=== PATIENT | male | born 1945 | race Caucasian/White ===

== ENCOUNTER 2018-05-19 06:05 | Day surgery (SDC) | payer MEDICARE, BC ==
[2018-04-28 12:09] LABS: HEMATOCRIT 45.2 % (37.9-51.0); HEMOGLOBIN 15.6 g/dL (13.5-17.0); MEAN CORPUSCULAR HGB CONC 34.5 g/dL (32.0-36.0); MEAN CORPUSCULAR VOLUME 90 fl (80-97); PLATELET COUNT 249 10^3/uL (150-450); RED BLOOD COUNT 5.02 10^6/uL (4.35-5.55); RED CELL DISTRIBUTION WIDTH 13.9 % (11.5-14.0); WHITE BLOOD COUNT 7.6 10^3/uL (4.0-10.5)
[2018-04-28 12:13] LABS: INTERNATIONAL RATION (INR) 0.91; PROTHROMBIN TIME 12.7 SEC (11.4-15.4)
--- NOTE | 2018-04-28 13:38 | EKG REPORT ---
SEVERITY:- NORMAL ECG - SINUS RHYTHM : Confirmed by: Dale Gottlieb MD 28-Apr-2018 13:37:42
[~2018-05-19 06:05] MED LIST: CEFAZOLIN 1 GM/D5W RTU 1 GM/50 ML RTUPB IV PRN; LACTATED RINGERS 1000 ML IV PRN; LIDOCAINE 0.5% INJ-PF (5 MG/ML) 50 ML SDV SUBCUT PRN; LIDOCAINE 1%/EPINEPHRINE INJ 20 ML VIAL ONE; SODIUM BICARBONATE 8.4% INJ 50 MEQ/50 ML DISP.SYRIN ONE
[2018-05-19] MEDS ORDERED: MIDAZOLAM 2 MG/2 ML INJ ONE (06:54)
[2018-05-19] MEDS ORDERED: FENTANYL CITRATE INJ/PF 100 MCG/2 ML AMPUL ONE (06:54)
[2018-05-19] MEDS ORDERED: PROPOFOL INJ 200 MG/20 ML VIAL IV ONE (06:55)
[2018-05-19] MEDS ORDERED: KETAMINE HCL INJ 500 MG/10 ML VIAL ONE (08:11)
[2018-05-19] MEDS ORDERED: PROMETHAZINE HCL INJ 25 MG/1 ML VIAL IV PRN (08:44)
[2018-05-19] MEDS ORDERED: FENTANYL CITRATE INJ/PF 100 MCG/2 ML AMPUL IV PRN ×3 (08:44)
[2018-05-19] MEDS ORDERED: DIPHENHYDRAMINE HCL 50 MG/ML VIAL IV PRN (08:44)
--- NOTE | 2018-05-19 09:31 | Operative Report ---
Operative Report DATE OF SURGERY: 05/19/18 PREOPERATIVE DIAGNOSIS: Mass of the left medial scapula POSTOPERATIVE DIAGNOSIS: Same OPERATION: Excision of mass of left medial scapula with multi layer closure SURGEON: BRII CONCEPCION ANESTHESIA: LMAC TISSUE REMOVED OR ALTERED: Lipoma COMPLICATIONS: None ESTIMATED BLOOD LOSS: Minimal PROCEDURE: The patient was brought into the operating room after being marked. The patient was placed in a sloppy lateral position. The patient was then prepped with a Betadine scrub and Betadine solution. A timeout was performed. The area for resection was outlined. Injection of 1% lidocaine with epinephrine and bicarbonate was performed for its anesthetic and hemostatic effects. An incision was then made through the skin into the subcutaneous tissue. Dissection was performed [id number] to encounter the mass. Once the mass was encountered a dissection was performed 360 in order to remove the mass Retraction was used to facilitate exposure. Dissection was performed through the superficial fascia and then down into the deep fat. The dissection was performed in the deep subcutaneous plane. [id number] the mass was dissected free of the surrounding tissue. Throughout the case hemostasis was achieved with the bipolar and the Bovie. Once the mass was completely dissected it was then removed. The area was washed with Betadine and sterile water solution. Hemostasis was confirmed. Closure was then performed using 3-0 Vicryl sutures. Because of the size of the mass deeper sutures were placed in order to minimize a deformity. The layers that were dissected were closed [id number] until we reached the deep dermis. 3-0 Vicryl was used for deep dermal sutures. A subcuticular stitch was placed using 3-0 PDS. A central support stitch was placed using 3-0 PDS. The wound was cleaned with Betadine prior to the final closure. Tincture of benzoin and Steri-Strips with a light pressure dressing was applied. Patient was then reversed from anesthesia and taken to the [facility] for recovery. The approximate size of the mass was 3.2 cm. This dictation was performed with [place] naturally speaking. If there are any inconsistencies or errors please contact the physician. Subjective: No complaints Objective: Vital signs stable afebrile No bleeding Dressing intact Assessment and plan: Doing well. Elevate the operative site. Resume medications. Take antibiotics for 1 day Follow-up Full instructions were given to the patient and family and they understand Portions of this note may be dictated using [employer] voice recognition software. Occasional variations and spelling and vocabulary could be possible and are unintentional. Additionally, there is a chance that some errors may not be caught or corrected. Please notify the offer of any discrepancies noted or if any statements are unclear.
--- NOTE | 2018-05-19 09:34 | Discharge Summary ---
Discharge Summary (SDC) - Discharge Final Diagnosis: Mass of the left medial scapula Date of Surgery: 05/19/18 Condition: Good Treatment or Instructions: Leave the top dressing on for 2 days, then removed. Leave the Dermabond glue on for 10 days days, then removal. Then cleaning wound with peroxide and apply/bacitracin 3 times per day. Antibiotics for 1 day, then discontinue. Elevate operative area to decrease swelling. Do not strain, or lift heavy objects. Call for excessive bleeding, increased temperature of 101, uncontrolled pain, or excessive nausea or vomiting. You may reach Dr. Wilder through his office at [phone]. In the event of an emergency after hours, then contact Dr. Wilder through [facility]. Return to the office for a postop check on . The time will be scheduled by the nursing staff of [facility] prior to discharge. Please give the patient a copy of their labs and EKG so they can bring this to their PMD. Thank you Portions of this note may be dictated using [employer] voice recognition software. Occasional variations and spelling and vocabulary could be possible and are unintentional. Additionally, there is a chance that some errors may not be caught or corrected. Please notify the offer of any discrepancies noted or if any statements are unclear. Referrals: ELDA SWANN MD [Primary Care Provider] - Discharge Activity: Activity As Tolerated Report the Following to Your Physician Immediately: Unusual Bleeding - Do not stretch or bend back. No reaching. Take the top dressing off in 2 days. The wound is glued with Dermabond. When the Dermabond start in about 7- 10 days he may start peeling it off. Use bacitracin to help remove the rest of the Dermabond. Follow-up in the office next week.
[2018-05-19 11:54] VITALS: BP 140/70
== END 2018-05-19 10:55 | disposition home or self-care (01) ==
LOC: OROUT 06:05
PROVIDERS: ATTEND Plastic Surgery
DX: D17.1 Benign lipomatous neoplasm of skin and subcutaneous tissue of trunk (principal); Z79.01 Long term (current) use of anticoagulants; Z85.46 Personal history of malignant neoplasm of prostate
CPT/HCPCS: 93005; 36415; 85027; 85610; 85730; 88304 ×2; 93010; 21931; J2250; J0690; J3010; J3490 ×2; J2704; 300

== ENCOUNTER 2019-10-23 03:59 | Emergency (ER) | payer MEDICARE, BC ==
[2019-10-23] MEDS ORDERED: MORPHINE SULFATE 10 MG/ML INJ IV ONE (04:57)
[2019-10-23] MEDS ORDERED: ONDANSETRON HCL INJ/PF 4 MG/2 ML SDV IV ONE (04:57)
--- NOTE | 2019-10-23 04:58 | ER Document Report ---
ED Neck/Back Problem - General Chief Complaint: Low Back Pain Stated Complaint: LOWER BACK PAIN Time Seen by Provider: 10/23/19 04:45 Primary Care Provider: ELDA SWANN MD [Primary Care Provider] - Follow up as needed Notes: Patient is a 74-year-old male that comes emergency department for chief complaint of lower back pain. He states the pain feels like it is in the middle of his lower back, radiates out to both sides, pain does not go down his legs. He denies numbness, incontinence, fever, nausea/vomiting, abdominal pain. He states he started feeling some tightness and soreness 3 to 4 days ago, pain is been much worse over the past 2 days, he states he barely was able to get out of bed to come to the emergency department this morning. Patient does have a history of prostate cancer, treated and in remission, however he states he had a recent screening PSA and this was very elevated again. He states he takes a stool softener and has a history of constipation but he denies any medical histo ry otherwise, he denies any other medications. TRAVEL OUTSIDE OF THE [place] IN LAST 30 DAYS: No - Related Data Allergies/Adverse Reactions: opiates Adverse Reaction (Mild, Uncoded 10/23/19 04:08) Constipation Home Medications: constipation medicines Past Medical History - General Information source: Patient - Social History Smoking Status: Never Smoker Frequency of alcohol use: None Drug Abuse: None Lives with: Family Family History: Reviewed & Not Pertinent Patient has suicidal ideation: No Patient has homicidal ideation: No - Past Medical History Cardiac Medical History: Denies: Hx Coronary Artery Disease, Hx Heart Attack, Hx Hypertension Pulmonary Medical History: Denies: Hx Asthma, Hx Bronchitis, Hx COPD, Hx Pneumonia Neurological Medical History: Denies: Hx Cerebrovascular Accident, Hx Seizures Malignancy Medical History: Reports Hx Prostate Cancer Musculoskeletal Medical History: Denies Hx Arthritis Past Surgical History: Denies: Hx Pacemaker - Immunizations Hx Diphtheria, Pertussis, Tetanus Vaccination: Yes Review of Systems - Review of Systems Constitutional: No symptoms reported EENT: No symptoms reported Cardiovascular: No symptoms reported Respiratory: No symptoms reported Gastrointestinal: No symptoms reported Genitourinary: No symptoms reported Male Genitourinary: No symptoms reported Musculoskeletal: See HPI Skin: No symptoms reported Hematologic/Lymphatic: No symptoms reported Neurological/Psychological: No symptoms reported Physical Exam - Vital signs Vitals: Temp Pulse Resp BP Pulse Ox 97.4 F 84 16 124/76 94 10/23/19 04:06 10/23/19 04:06 10/23/19 04:06 10/23/19 04:06 10/23/19 04:06 - Notes Notes: GENERAL: Alert, interacts well. No acute distress. Patient moves with discomfort but does not appear to be in distress. HEAD: Normocephalic, atraumatic. EYES: Pupils equal, round, and reactive to light. Extraocular movements intact. ENT: Oral mucosa moist, tongue midline. Oropharynx unremarkable. Airway patent. LUNGS: Clear to auscultation bilaterally, no wheezes, rales, or rhonchi. No respiratory distress. HEART: Regular rate and rhythm. No murmur ABDOMEN: Soft, non-tender. Non-distended. Bowel sounds present in all 4 quadrants. GENITOURINARY: Deferred EXTREMITIES: Moves all 4 extremities spontaneously. No edema, normal radial and dorsalis pedis pulses bilaterally. No cyanosis. BACK: There is tenderness along the lower lumbar spine in the midline and on the bilateral paraspinal muscles. This is specific. Borderline straight leg raises bilaterally but not significantly. No saddle anesthesia, no signs of trauma. Normal upper and lower extremity range of motion, normal strength, normal distal neurovascular exam. NEUROLOGICAL: Alert and oriented x3. Normal speech. Cranial nerves II through XII grossly intact. PSYCH: Normal affect, normal mood. SKIN: Warm, dry, normal turgor. No rashes or lesions noted. Course - Re-evaluation Re-evalutation: Patient moves with discomfort, has palpable tenderness of the lumbar spine and bilateral paraspinal muscles. No neurovascular deficits. Unremarkable vital signs. CBC, chemistry unremarkable. Urinalysis shows elevated specific gravity but is otherwise unremarkable. Given IV fluids. CT was performed because of patient's history of prostate cancer and him telling me that his most recent PSA was elevated. In addition to this patient had point tenderness over the lumbar spine. This shows incidental finding of possible chronic aortic dissection in the infrarenal aorta, shows small herniated disc at L5 and S1, nonspecific otherwise. No acute findings reported. Discussed with patient at length. Provided him with a copy of his report, he has follow-up in 2 days and then again in 5 days. He will be treated with steroids, provided with pain medication, discussed recommendations, follow-up, return precautions. I discussed with Dr. Dsouza the details including CAT scan details, she evaluated the patient at bedside, she states patient can be discharged with follow-up instructions and return precautions. Patient states understanding and agreement. - Vital Signs Vital signs: Temp Pulse Resp BP Pulse Ox 97.4 F 74 16 133/61 H 100 10/23/19 06:37 10/23/19 06:37 10/23/19 06:37 10/23/19 06:37 10/23/19 06:37 - Laboratory Result Diagrams: 10/23/19 05:13 10/23/19 05:13 Laboratory results interpreted by me: 10/23/19 10/23/19 10/23/19 05:13 05:13 07:26 RDW 14.2 H BUN 21 H Urine Blood SMALL H Discharge - Discharge Clinical Impression: Lower back pain Qualifiers: Chronicity: acute Back pain laterality: bilateral Sciatica presence: without sciatica Qualified Code(s): M54.5 - Low back pain Condition: Stable Disposition: HOME, SELF-CARE Additional Instructions: Your imaging shows what appears to be herniated disc at L5-S1, this is most likely the cause of your pain. Apply heat to your back, you have been treated with steroids, rest, take Tylenol for pain, only take stronger pain medication if needed with precautions, if you do also take the stool softener. Follow-up closely with your primary care as discussed for additional management. Your imaging shows a possible chronic aortic dissection, take your report to your provider for additional imaging and management. Come back for any concerning symptoms including sudden severe pain in your back, dizziness, numbness in your lower extremities, inability to control your bowels or bladder, fever, or any other concerning symptoms. Prescriptions: Docusate Sodium [Colace 100 mg Capsule] 100 mg PO ASDIR PRN #30 capsule PRN Reason: Morphine Sulfate [Morphine Ir 15 Mg Tablet] 15 mg PO TID PRN #12 tablet PRN Reason: Referrals: ELDA SWANN MD [Primary Care Provider] - Follow up as needed
[2019-10-23 05:36] LABS: ABSOLUTE EOSINOPHILS # (AUTO) 0.2 10^3/uL (0.0-0.6); ABSOLUTE LYMPHOCYTES (AUTO) 2.6 10^3/uL (0.5-4.7); ABSOLUTE MONOCYTES (AUTO) 0.7 10^3/uL (0.1-1.4); ABSOLUTE NEUT (AUTO) 5.9 10^3/uL (1.7-8.2); BASOPHILS % (AUTO) 0.4 % (0-2); EOSINOPHILS % (AUTO) 2.2 % (0-6); HEMATOCRIT 47.5 % (37.9-51.0); HEMOGLOBIN 16.5 g/dL (13.5-17.0); LYMPHOCYTES % (AUTO) 27.8 % (13-45); MEAN CORPUSCULAR HEMOGLOBIN 30.5 pg (27.0-33.4); MEAN CORPUSCULAR HGB CONC 34.7 g/dL (32.0-36.0); MEAN CORPUSCULAR VOLUME 88 fl (80-97); MONOCYTES % (AUTO) 7.1 % (3-13); PLATELET COUNT 257 10^3/uL (150-450); RED BLOOD COUNT 5.39 10^6/uL (4.35-5.55); RED CELL DISTRIBUTION WIDTH 14.2 % (11.5-14.0); SEGMENTED NEUTROPHILS % (AUTO) 62.5 % (42-78); TOTAL CELLS COUNTED % (AUTO) 100 %; WHITE BLOOD COUNT 9.5 10^3/uL (4.0-10.5)
[2019-10-23 05:53] LABS: ALBUMIN 4.6 g/dL (3.5-5.0); ALKALINE PHOSPHATASE 78 U/L (38-126); ANION GAP 9 (5-19); ASPARTATE AMINO TRANSFERASE 29 U/L (17-59); BILIRUBIN,DIRECT 0.1 mg/dL (0.0-0.4); BILIRUBIN,TOTAL 0.4 mg/dL (0.2-1.3); BLOOD UREA NITROGEN 21 mg/dL (7-20); CALCIUM 9.9 mg/dL (8.4-10.2); CARBON DIOXIDE 28 mmol/L (22-30); CHLORIDE 104 mmol/L (98-107); GLUCOSE 92 mg/dL (75-110); POTASSIUM 4.7 mmol/L (3.6-5.0); TOTAL PROTEIN 7.5 g/dL (6.3-8.2)
--- NOTE | 2019-10-23 07:30 | RADIOLOGY REPORT (SQ) ---
EXAM DESCRIPTION: CT ABDOMEN PELVIS WITH IV CONTRAST COMPLETED DATE/TME: 10/23/2019 04:54 CLINICAL HISTORY: 74 years Male, sharp flank pain, hx prostate cancer (Lumbar Recons: Point Tenderness) Comparison: None. Technique: IV contrast. Coronal and sagittal reformat. This exam was performed according to our departmental dose-optimization program, which includes automated exposure control, adjustment of the mA and/or kV according to patient size and/or use of iterative reconstruction technique. [facility]: Dose Right [facility]: CareDose [facility]: Dose Right [facility]: Teradose 4D [facility]: ScoreBig LIMITATIONS: None Findings: Calcified intimal flap suspected along the central aspect of the infrarenal abdominal aorta, image 39 of series 3, suggestive of chronic dissection. No flow-limiting component. No dayne aneurysm. Advanced coronary arterial calcification/stent. Atherosclerotic vascular disease. Renal arterial calcification. Atelectasis/scar. Colonic fluid which may indicate ileus, malabsorption, or enteritis/toxin. Renal scar/atrophy. Colonic diverticulosis. Small L5-S1 disc bulge. No ascites. No pneumoperitoneum. Normal appendix. No gross evidence of gallbladder inflammation, hepatobiliary obstruction, or portal vein defect. No bowel obstruction. No hydronephrosis or hydroureter. No renal/ureteral stone. No evidence of abdominal aortic aneurysm. No gross evidence of thecal sac/cord or nerve root compression. Inferior thorax, liver, gallbladder, pancreas, spleen, adrenals, renal system, gastrointestinal tract, pelvic organs, lymphatics, vasculature, and musculoskeleton appear otherwise unremarkable. IMPRESSION: 1. No acute findings. Calcified intimal flap suspected along the central aspect of the infrarenal abdominal aorta suggestive of chronic dissection. No flow-limiting component. 2. Colonic fluid which may indicate ileus, malabsorption, or enteritis/toxin.
[2019-10-23 07:58] LABS: APPEARANCE,URINE CLEAR; BILIRUBIN,URINE NEGATIVE (NEGATIVE); COLOR,URINE YELLOW; GLUCOSE, URINE NEGATIVE (NEGATIVE); KETONES,URINE NEGATIVE (NEGATIVE); LEUKOCYTE ESTERASE,URINE NEGATIVE (NEGATIVE); NITRITE,URINE NEGATIVE (NEGATIVE); PROTEIN,URINE NEGATIVE (NEGATIVE); UROBILINOGEN,URINE NEGATIVE mg/dL (<2.0)
[2019-10-23 08:06] LABS: URINE SPECIFIC GRAVITY > 1.060
[2019-10-23] MEDS ORDERED: NORMAL SALINE 1000 ML 1,000 ML IV ONE (08:20)
[2019-10-23] MEDS ORDERED: DEXAMETHASONE SOD PHOS INJ 10 MG/1 ML VIAL IV ONE (08:22)
[2019-10-23 09:29] VITALS: BP 137/63
== END 2019-10-23 09:27 | disposition home or self-care (01) ==
LOC: ER 03:59
DX: M54.5 Low back pain (principal); Z85.46 Personal history of malignant neoplasm of prostate; Z79.899 Other long term (current) drug therapy
CPT/HCPCS: 99284; 96361; 96374; 96375; 36415; 85025; 80053; 81001; 74177; J2270; J2405; J7030; J1100